=== PATIENT | female | born 1940 | race Caucasian/White ===

== ENCOUNTER → 2019-04-16 | Outpatient (CLI) | payer OTHER ==
[~2019-04-16] MED LIST: REGADENOSON 0.4 MG/5 ML DISP.SYRIN. IV ONE
--- NOTE | 2019-04-16 13:30 | PCVCIMAG ---
APPROVED REPORT Imaging Protocol: Rest Tc-99m/Stress Tc-99m 1 day Study performed: 04/16/2019 09:27:56 Indication: Syncope, Fatigue, CAD, Weakness Patient Location: Out-Patient Stress Nurse: Ketty Guaman RN, Sujatha Bowles RN DC Tech:Shreya Tidwellandrew [facility] Ht: 4 ft 11 in Wt: 98 lbs BSA: 1.36 m2 HR: 56 bpm BP: 159/72 mmHg BMI: 19.79 Rhythm: Sinus Rhythm Medical History Medical History: Hyperlipidemia, CVD, PAD, COPD Medications: Plavix, Atorvastain, Metoprolol ASA Allergies: No known drug allergies Cardiac Risk Factors: Age Pretest Chest Pain Characteristics: No chest pain Exercise History: Indeterminate Physical Disabilities: Severe Kyphosis and foot injury Meds Held (24 hrs): Metoprolol Resting Data Rest SPECT myocardial perfusion imaging was performed in supine position 45 minutes following the intravenous injection of 9 mCi of Tc-99m Sestamibi. Time of rest injection: 1000 Date: 04/16/2019 Administration Route: IV Administration Site: Left Arm Pharmacologic Stress Pharmacologic stress test was performed by injecting Regadenoson 0.4 mg IV push over 10-15 seconds immediately followed by the intravenous injection of 29 mCi of Tc-99m Sestamibi. Time of stress injection: 1115 Date: 04/16/2019 Administration Route: IV Administration Site: Left Arm Gated Stress SPECT was performed 45 minutes after stress injection. The images were gated to evaluate regional wall motion and calculate left ventricular ejection fraction. Stress Test Details Stress Test: Pharmacologic stress testing performed using 0.4 mg of regadenoson per 5 mL given IV over 10 seconds. Reason for pharmacologic stress test: physical limitation. HRMax Heart Rate (APMHR): 144 bpm Resting HR: 56 bpmTarget HR (85% APMHR): 122 bpm Max HR Achieved: 81 bpm % of APMHR: 56 Recovery HR: 71 bpm BP Resting BP: 159/72 mmHg Max BP: 162/74 mmHg Recovery BP: 113/56 mmHg ECG Resting ECG: Sinus Rhythm, nonspecific ST-T abnormalities Stress ECG: Sinus Rhythm, nonspecific ST-T abnormalities ST Change: Nondiagnostic resting ST abnormalities Arrhythmia: None Recovery ECG: Sinus Rhythm Clinical Reason for Termination: Completed protocol Stress Symptoms: Dyspnea, Dizziness, Fatigue Symptoms resolved during recovery. Study Quality Study: Good Study Data Post stress, the left ventricular ejection was 69%.. SSS: 0 SRS: 0 SDS: 0 Perfusion Normal left ventricular perfusion. Normal perfusion on both the stress and rest images. Wall Motion Normal left ventricular wall motion. Nuclear Conclusion ECG Findings: non-diagnostic Clinical Findings: non-diagnostic Nuclear Findings: negative for ischemia Exercise Capacity: not assessed Left Ventricular Function: normal Risk Study: low This study is of low probability for inducible ischemia or prior infarct. Normal global and segmental LV systolic function.
== END | disposition home or self-care (01) ==
LOC: PCVCIMAG 09:19
PROVIDERS: ATTEND Internal Medicine Cardiovascular Disease
DX: I25.10 Atherosclerotic heart disease of native coronary artery without angina pectoris (principal); I10 Essential (primary) hypertension; R55 Syncope and collapse; R53.1 Weakness
CPT/HCPCS: 78452; 93017; A9500; J2785